=== PATIENT | male | born 2005 | race African-American/Black ===

== ENCOUNTER 2025-02-06 00:59 | Emergency (ER) | payer OTHER, SELFPAY ==
[2025-02-06] MEDS ORDERED: cefTRIAXone (ROCEPHIN) 500 MG VIAL ONE (03:08)
[2025-02-06 11:03] LABS: Chlam.trachomatis by PCR,Urine Not Detected (NotDetected); GC N.gonorrhoeae PCR,UrineVOID Not Detected (NotDetected)
== END 2025-02-06 03:20 | disposition home or self-care (01) ==
LOC: ERS 00:59
DX: Z20.2 Contact with and (suspected) exposure to infections with a predominantly sexual mode of transmission (principal)
CPT/HCPCS: 87491; 87591; 99283; J0696

== ENCOUNTER 2025-04-26 18:46 | Emergency (ER) | payer OTHER, SELFPAY ==
[2025-04-26] MEDS ORDERED: Methocarbamol 500 MG TAB ONE (20:01)
[2025-04-26] MEDS ORDERED: Ibuprofen 200 MG TAB ONE ×2 (20:01→20:02)
== END 2025-04-26 20:07 | disposition home or self-care (01) ==
LOC: ERS 18:46
DX: M54.50 Low back pain, unspecified (principal); M54.6 Pain in thoracic spine
CPT/HCPCS: 99282